=== PATIENT | female | born 2000 | race Caucasian/White ===

== ENCOUNTER 2019-09-16 16:00 | Observation (INO) ==
[2019-09-16] MEDS ORDERED: SODIUM CHLORIDE 0.9% 1000ML 1,000 ML IV ONE (16:17)
[2019-09-16] MEDS ORDERED: KETOROLAC 30 MG/ML VIAL IV STA (16:17)
[2019-09-16] MEDS ORDERED: ONDANSETRON INJ 2 MG/ML 2 ML VIAL IV STA ×2 (16:17→18:28)
[2019-09-16 17:06] LABS: Basophils # (auto) 0.01 K/uL (0-0.2); Basophils % (auto) 0.1 %; Eosinophils # (auto) 0.12 K/uL (0-0.5); Eosinophils % (auto) 1.1 %; Immature Granulocytes # (auto) 0.03 K/uL (0.00-0.02); Immature Granulocytes % (auto) 0.3 %; Lymphocytes # (auto) 0.72 K/uL (1.2-3.4); Lymphocytes % (auto) 6.7 %; Mean Corpuscular Hemoglobin 26.6 pg (25-34); Mean Corpuscular Hgb Conc 32.4 g/dL (32-36); Mean Corpuscular Volume 82.1 fL (80-100); Monocytes # (auto) 0.86 K/uL (0.11-0.59); Neutrophils # (auto) 9.06 K/uL (1.4-6.5); Neutrophils % (auto) 83.8 %; Platelet Count 284 K/uL (130-400); RDW Coefficient of Variation 15.7 % (11.5-14.5); RDW Standard Deviation 47.1 fL (36.4-46.3); Red Blood Count 4.14 M/uL (4.2-5.4)
[2019-09-16 17:23] LABS: Albumin Level 4.1 gm/dl (3.4-5.0); BUN Creatinine Ratio 13.8 (10-20); Creatinine Clr Calc Pharmacy 108.3 ml/min; Est GFR (African American) 144.9; Potassium 3.4 mmol/L (3.5-5.1)
[2019-09-16 17:25] LABS: Albumin Globulin Ratio 1.1 (0.9-2); Bilirubin,Total 0.4 mg/dl (0.2-1); Globulin 3.8 gm/dl (2.5-4.0); Total Protein 7.9 gm/dl (6.4-8.2)
[2019-09-16] MEDS ORDERED: IOVERSOL 100ml IV PRN (17:53)
--- NOTE | 2019-09-16 18:07 | CT Scan Report ---
ABDOMEN AND PELVIS CT WITH IV CONTRAST CT DOSE: 345.91 mGycm HISTORY: Right lower quadrant pain. TECHNIQUE: Multiaxial CT images of the abdomen and pelvis were performed following the use of intrave nous contrast. A dose lowering technique was utilized adhering to the principles of ALARA. COMPARISON STUDY: None. FINDINGS: The lung bases are clear. No pneumoperitoneum. No pneumatosis. No fractures within the visu alized osseous structures. The liver, spleen, adrenal glands, pancreas, gallbladder, and kidneys are unremarkable. No hydronephrosis. No retroperitoneal lymphadenopathy. A few prominent ileocolic lymph nodes which are likely reactive. The bladder, uterus, and bilateral ovaries are unremarkable. There i s trace pelvic free fluid. No evidence for a small bowel obstruction. The appendix is thick-walled an d dilated up to 12 mm. There is mild periappendiceal fat stranding. There is a 1 cm appendicolith. No perforation or abscess. Findings are consistent with acute appendicitis. IMPRESSION: Acute appendicitis. No perforation or abscess. The appendix contains a 1 cm appendicolith. ACT 112: Negative or not required by law. Electronically signed by: Nnamdi Manzo M.D. 09/16/2019 6:05 PM
[2019-09-16] MEDS ORDERED: cefOXitin 2,000 MG/60 ML BAG IV STA (18:28)
[2019-09-16] MEDS ORDERED: MoRPHine SULFATE 4 MG/ML 1 ML CARP\\VIAL IV STA (18:28)
[2019-09-16] MEDS: SODIUM CHLORIDE 0.9% 500 ML IV SCH ×2 (19:02→23:41)
[2019-09-16] MEDS: BUPIVACAINE/EPINEPHRINE 0.5% MPF 1:200,000 10 ML VIAL ONE ×2 (19:02→20:37)
--- NOTE | 2019-09-16 19:20 | History & Physical Report ---
Date of Service September 16, 2019 Assessment & Plan (1) Acute appendicitis: We discussed her options. I am recommending a laparoscopic possible open appendectomy. We discussed alternatives. We discussed the risks which include bleeding, infection, DVT, PE, [place], CVA, injury to another organ such as ureter or bowel etc. Following our discussion I answered all of her questions. We will proceed this evening with laparoscopic appendectomy. She is agreeable with the plan. Acute appendicitis type: unspecified acute appendicitis type Qualified Code(s): K35.80 - Unspecified acute appendicitis History of Present Illness Primary Care Provider: NO PCP 19-year-old female who began having abdominal pain late last night. She had no resolution into today and was seen at an urgent center who referred her to the emergency room. CT scan confirms acute appendicitis. The pain is currently in her right lower quadrant. She has 11,000 white count. Allergies Allergy/AdvReac Type Severity Reaction Status Date / Time No Known Allergies Allergy Unverified 09/16/19 17:10 Home Medications Home Medications Medication Instructions Recorded Confirmed Type ibuprofen 600 mg PO TID PRN 09/16/19 09/16/19 History medroxyprogesterone [Depo-Provera] 150 mg IM .[id number] 09/16/19 09/16/19 History Past Med/Surg History Medical History Ovarian cyst Surgical History No pertinent past surgical history Family History Other No pertinent family history in first degree relatives Social History Feels Safe at Home: Yes Smoking Status: Never smoker Review of Systems All systems reviewed & are unremarkable except as noted in HPI & below Physical Exam Constitutional: WD/WN, vitals as above no acute distress and not ill appearing Eyes: PERRL, conjunctivae normal, anicteric sclerae EOM intact bilaterally ENMT: external ear and nose normal, oropharynx normal Ears: no hearing impairment Neck: trachea midline, no thyromegaly Respiratory: normal respiratory effort; no respiratory distress and does not use accessory muscles Cardiovascular: Rate/Rhythm: regular rate and regular rhythm Gastrointestinal (Abdomen): Soft. Positive right lower quadrant tenderness to palpation. Positive guarding. Positive Rovsing sign Skin: no rashes, warm and dry Psychiatric: Orientation: alert, oriented x 3 and cooperative Results & Data Vital Signs (Past 12 Hours) Vital Signs Temp Pulse Pulse Resp BP BP Pulse Ox 09/16/19 18:04 89 20 114/73 99 09/16/19 16:58 99 09/16/19 16:05 37.3 C 121 H 20 121/97 98
[2019-09-16] MEDS ORDERED: MIDAZOLAM HCL 1 MG/ML 2ML VIAL ONE (19:28)
[2019-09-16] MEDS ORDERED: fentaNYL citrate 100 MCG/2 ML VIAL ONE ×2 (19:29→21:10)
--- NOTE | 2019-09-16 19:42 | Anesthesiology Consultation ---
Date of Service September 16, 2019 Assessment & Plan Chart Review Chart Review: Acceptable Risk for Surgery Consults Requested none History Surgery Operation Date: 09/16/19 19:30 Proposed Procedures p Laparoscopic Appendectomy - Dax Jay DO Height/Weight Height: 5 ft 3 in Weight: 58.7 kg Allergies Allergy/AdvReac Type Severity Reaction Status Date / Time No Known Allergies Allergy Unverified 09/16/19 17:10 Medications Home Medications Medication Instructions Recorded Confirmed Last Taken ibuprofen 600 mg PO TID PRN 09/16/19 09/16/19 Unknown medroxyprogesterone [Depo-Provera] 150 mg IM .[id number] 09/16/19 09/16/19 Unknown Active Medications Generic Name Dose Route Start Last Admin Trade Name Freq PRN Reason Stop Dose Admin Sodium Chloride 500 mls @ 125 mls/hr 09/16/19 18:30 09/16/19 19:02 Nss IV 10/16/19 18:29 Not Given .Q4H CJ Ioversol 94 ml 09/16/19 17:53 09/16/19 17:54 Optiray 320 100ml IV 09/20/19 17:52 94 ml ONCE PRN Administration Interaction Checking Past Medical History Medical History Ovarian cyst Past Family History Family History Other No pertinent family history in first degree relatives Past Surgical History Surgical History No pertinent past surgical history Social History Smoking Status: Never smoker Physical Exam Vital Signs Last Vital Signs Temp 37.3 C 09/16/19 16:05 Pulse 90 09/16/19 19:18 Resp 16 09/16/19 19:18 BP 122/77 09/16/19 19:18 Pulse Ox 99 09/16/19 19:18 Testing Laboratory Results 09/16/19 16:55 09/16/19 16:55
[2019-09-16] MEDS ORDERED: ONDANSETRON INJ 2 MG/ML 2 ML VIAL IV PRN (19:44)
[2019-09-16] MEDS ORDERED: DEXAMETHASONE SOD INJ 4 MG/ML VIAL IV PRN (19:44)
[2019-09-16] MEDS ORDERED: HYDROmorphone INJ 2 MG/ML SYR/VIAL IV PRN (19:44)
[2019-09-16] MEDS ORDERED: ATROPINE SULFATE 0.1 MG/ML 10ML SYR IV PRN (19:44)
[2019-09-16] MEDS ORDERED: ePHEDrine sulfate 50 MG/ML AMP IV PRN (19:44)
--- NOTE | 2019-09-16 19:48 | Emergency Department Note ---
Entered by Kriss Clarke acting as a scribe for Sorin Alanis MD History of Present Illness General Chief complaint: Abdominal Pain Stated complaint: STOMACH PAIN, NAUSEA Time Seen by Provider: 09/16/19 16:08 Source: patient History of Present Illness Provider complaint: Abdominal Pain Onset (ago): day(s) 1 Location: abdomen (Lower) and right Pain Consistency: + constant Maximum Pain Intensity: 8 Quality: + sharp Relieved By: + none Exacerbated By: + none Associated symptoms: + fever/chills, + nausea/vomiting (Positive nausea. Negative vomiting. ) and + other (Constipated) The patient is a 19 year old female w/ PMHx of ovarian cysts who presents to the ED w/ CC of constant sharp lower right sided abdominal pain beginning last night. The patient states that her pain is not relieved nor exacerbated by anything specific. The patient reports experiencing fever/chills and constipation. The patient also reports experiencing nausea but denies any vomiting. The patient notes that she is on control. Home Medications Home Medications Medication Instructions Recorded Confirmed Type ibuprofen 600 mg PO TID PRN 09/16/19 09/16/19 History medroxyprogesterone [Depo-Provera] 150 mg IM .[id number] 09/16/19 09/16/19 History Allergies Allergy/AdvReac Type Severity Reaction Status Date / Time No Known Allergies Allergy Unverified 09/16/19 17:10 Past Med/Surg History Medical History Ovarian cyst Surgical History No pertinent past surgical history Family History Other No pertinent family history in first degree relatives Social History Feels Safe at Home: Yes Smoking Status: Never smoker Review of Systems See HPI for pertinent positives & negatives. and A total of 10 systems reviewed and were otherwise negative Physical Exam Vital Signs Vital Signs - 24 hr 09/16/19 16:05 09/16/19 16:58 09/16/19 18:04 Temperature 37.3 C Temperature Source Oral Pulse Rate 121 H Pulse Rate [Finger] 89 Respiratory Rate 20 20 Respiratory Effort / Characteristics Non-Labored Spontaneous Non-Labored Spontaneous Respiratory Depth Normal Normal Respiratory Pattern Regular Regular Blood Pressure 121/97 Blood Pressure [Right Arm] 114/73 Blood Pressure Mean 105 Blood Pressure Mean [Right Arm] 86 Blood Pressure Position Sitting Pulse Oximetry 98 99 99 Oxygen Delivery Method Room Air Room Air Room Air Sepsis Recent Fever Within 48 Hours No Sepsis New/Unexplained Change in Mental Status No Sepsis Action Taken by Nursing No Action Required 09/16/19 19:10 09/16/19 19:18 Temperature Temperature Source Pulse Rate Pulse Rate [Finger] 90 Respiratory Rate 16 Respiratory Effort / Characteristics Respiratory Depth Respiratory Pattern Blood Pressure Blood Pressure [Right Arm] 122/77 Blood Pressure Mean Blood Pressure Mean [Right Arm] 92 Blood Pressure Position Pulse Oximetry 99 Oxygen Delivery Method Room Air Room Air Sepsis Recent Fever Within 48 Hours Sepsis New/Unexplained Change in Mental Status Sepsis Action Taken by Nursing GENERAL: Well nourished, NAD, non-toxic. EYE EXAM: Normal conjunctiva. PERRL, no anisocoria and EOM's grossly intact w/o pain. OROPHARYNX: Moist mucous membranes. Grossly normal dentition. NECK: Supple, no nuchal rigidity, no adenopathy, non-tender. No signs of meningismus. LUNGS: Clear to auscultation. Normal chest wall mechanics. HEART: NSR, tachycardic rate, no MRG. ABDOMEN: Abdomen soft, RLQ pain, positive obturators and psoas, normo-active bowel sounds, no masses, no rebound or guarding. BACK: No CVA TTP. SKIN: No rashes and no bruising. UPPER EXTREMITIES: Upper extremities are grossly normal. LOWER EXTREMITIES: No pitting edema. No calf pain. NEURO EXAM: A&O x3, cranial nerves II-XII grossly intact, normal speech, moves all 4 extremities on command w/o issue. Course Course 1612: Past medical records reviewed. The patient was evaluated in room A03. A complete history and physical exam was performed. 1614: Continuous Cardiac Monitoring: An order was placed for continuous cardiac monitoring. The monitor shows a rate of 88 with normal sinus rhythm. 1722: I talked to the patient and her mother and the patient states that her pain has improved. 1828: I reevaluated and discussed test results with the patient. General surgery has been paged. 1834: I spoke with Dr. Jay- General Surgery and he will see the patient. 1922: Dr. Jay- General Surgery saw the patient and the patient will be taken to the operating room. Administered Medications Sodium Chloride (Nss) 500 mls @ 125 mls/hr IV .Q4H CJ Stop: 10/16/19 18:29 Last Admin: 09/16/19 19:02 Dose: Not Given Documented by: [id number] Ioversol (Optiray 320 100ml) 94 ml IV ONCE PRN PRN Reason: Interaction Checking Stop: 09/20/19 17:52 Last Admin: 09/16/19 17:54 Dose: 94 ml Documented by: [id number] Discontinued Medications Bupivacaine HCl/Epinephrine Bitart (Sensorcaine/Epinephrine 0.5% Mpf 1:200,000) Confirm Administered Dose 20 ml .ROUTE .STK-MED ONE Stop: 09/16/19 18:53 Last Admin: 09/16/19 19:02 Dose: Not Given Documented by: [id number] Sodium Chloride (Nss 1000ml) 1,000 mls @ 999 mls/hr IV .Q1H1M ONE Stop: 09/16/19 17:17 Last Infusion: 09/16/19 18:12 Dose: 0 mls/hr Documented by: [id number] Admin: 09/16/19 16:56 Dose: 999 mls/hr Documented by: [id number] Cefoxitin Sodium (Mefoxin) 2,000 mg in 60 mls @ 100 mls/hr IV NOW STA Stop: 09/16/19 19:03 Last Admin: 09/16/19 18:54 Dose: 100 mls/hr Documented by: [id number] Ketorolac Tromethamine (Toradol) 30 mg IV NOW STA Stop: 09/16/19 16:18 Last Admin: 09/16/19 16:58 Dose: 30 mg Documented by: [id number] Morphine Sulfate (Morphine Sulfate) 4 mg IV NOW STA Stop: 09/16/19 18:29 Last Admin: 09/16/19 18:55 Dose: 4 mg Documented by: [id number] Ondansetron HCl (Zofran) 4 mg IV NOW STA Stop: 09/16/19 16:18 Last Admin: 09/16/19 16:58 Dose: 4 mg Documented by: [id number] Ondansetron HCl (Zofran) 4 mg IV NOW STA Stop: 09/16/19 18:29 Last Admin: 09/16/19 18:55 Dose: 4 mg Documented by: [id number] Medical Decision Making Differential Diagnosis Differential diagnosis: Etiologies such as biliary colic, cholecystitis, hepatitis, perihepatitis, pancreatitis, cardiac disease, pancreatitis, gastritis, peptic ulcer disease, appendicitis, ovarian cyst, ovarian torsion, ectopic , pelvic inflammatory disease, cystitis, diverticulitis, mesenteric ischemia, inflammatory bowel disease, ileus, bowel obstruction, aortic pathology, shingles, as well as others were considered. Medical Records The patient has never been here before. Home Medications Current Medication List: was personally reviewed by me Laboratory Data Attestation: I reviewed the patient's lab results. Result diagrams: 09/16/19 16:55 09/16/19 16:55 Lab Results 09/16/19 09/16/19 Range/Units 16:55 16:55 WBC 10.80 (4.8-10.8) K/uL RBC 4.14 L (4.2-5.4) M/uL Hgb 11.0 L (12.0-16.0) g/dL Hct 34.0 L (37-47) % MCV 82.1 (80-100) fL MCH 26.6 (25-34) pg MCHC 32.4 (32-36) g/dL RDW Std Deviation 47.1 H (36.4-46.3) fL RDW Coeff of [place] 15.7 H (11.5-14.5) % Plt Count 284 (130-400) K/uL MPV 10.0 (7.4-10.4) fL Immature Gran % (Auto) 0.3 % Neut % (Auto) 83.8 % Lymph % (Auto) 6.7 % [place] % (Auto) 8.0 % Eos % (Auto) 1.1 % Baso % (Auto) 0.1 % Immature Gran # (Auto) 0.03 H (0.00-0.02) K/uL Neut # (Auto) 9.06 H (1.4-6.5) K/uL Lymph # (Auto) 0.72 L (1.2-3.4) K/uL [place] # (Auto) 0.86 H (0.11-0.59) K/uL Eos # (Auto) 0.12 (0-0.5) K/uL Baso # (Auto) 0.01 (0-0.2) K/uL Sodium 138 (136-145) mmol/L Potassium 3.4 L (3.5-5.1) mmol/L Chloride 109 H (98-107) mmol/L Carbon Dioxide 23 (21-32) mmol/L Anion Gap 6.0 (3-11) BUN 9 (7-18) mg/dl Creatinine 0.68 (0.6-1.2) mg/dl Est Cr Clr Drug Dosing 108.3 ml/min Est GFR ( Amer) 144.9 Est GFR (Non-Af Amer) 125.0 BUN/Creatinine Ratio 13.8 (10-20) Glucose 113 H (70-99) mg/dl Calcium 9.0 (8.5-10.1) mg/dl Total Bilirubin 0.4 (0.2-1) mg/dl AST 11 L (15-37) U/L ALT 15 (12-78) U/L Alkaline Phosphatase 83 (45-117) U/L Total Protein 7.9 (6.4-8.2) gm/dl Albumin 4.1 (3.4-5.0) gm/dl Globulin 3.8 (2.5-4.0) gm/dl Albumin/Globulin Ratio 1.1 (0.9-2) Lipase 104 (73-393) U/L Imaging Data Radiologist's Impression: Radiology results as stated below per my review and the radiologist's interpretation: ABDOMEN AND PELVIS CT WITH IV CONTRAST CT DOSE: 345.91 mGycm HISTORY: Right lower quadrant pain. TECHNIQUE: Multiaxial CT images of the abdomen and pelvis were performed following the use of intravenous contrast. A dose lowering technique was utilized adhering to the principles of ALARA. COMPARISON STUDY: None. FINDINGS: The lung bases are clear. No pneumoperitoneum. No pneumatosis. No fractures within the visualized osseous structures. The liver, spleen, adrenal glands, pancreas, gallbladder, and kidneys are unremarkable. No hydronephrosis. No retroperitoneal lymphadenopathy. A few prominent ileocolic lymph nodes which are likely reactive. The bladder, uterus, and bilateral ovaries are unremarkable. There is trace pelvic free fluid. No evidence for a small bowel obstruction. The appendix is thick-walled and dilated up to 12 mm. There is mild periappendiceal fat stranding. There is a 1 cm appendicolith. No perforation or abscess. Findings are consistent with acute appendicitis. IMPRESSION: Acute appendicitis. No perforation or abscess. The appendix contains a 1 cm appendicolith. ACT 112: Negative or not required by law. Electronically signed by: Nnamdi Manzo M.D. 09/16/2019 6:05 PM ECG Data Indication: + abdominal pain Rate (beats per minute): 88 Rhythm: + normal sinus ECG Intervals/blocks: + Incomplete right bundle branch block ECG ST segments: + T-wave inversions (Lead 3 and aVF ) ECG Findings: + Other (Normal intervals) Comparison ECG Date: no prior available Blood Pressure Blood Pressure Findings: Elevated blood pressure Blood Pressure Disposition: further management by hospitalist MDM Narrative The patient is a 19 year old female w/ PMHx of ovarian cysts who presents to the ED w/ CC of constant sharp lower right sided abdominal pain beginning last night. Patient was seen and evaluated the bedside. The patient was sent here from [facility] due to concern for right lower quadrant pain. Patient states that she started having his pain beginning last night. Patient has had nausea but without vomiting. No fevers. Patient does have prior history of ovarian cyst. Patient states that this does not feel necessarily similar. Patient did a bladder completed which is fairly unremarkable with only mild anemia and hypokalemia noted. CT of the abdomen pelvis does show an acute appendicitis. Patient was started on cefoxitin. IV fluids were also started patient was made n.p.o. I did speak with the general surgeon who kindly evaluated the patient. The patient was subsequently taken to the OR and admitted to the hospital. Impression & Plan Acute appendicitis, Abdominal pain, RLQ Discharge Plan Visit Data Chief Complaint: Abdominal Pain Stated Complaint: STOMACH PAIN, NAUSEA ED Provider: Sorin Alanis Discharge Problem: Acute appendicitis, Abdominal pain, RLQ Patient Disposition: Still a Patient Discharge Instructions Interventions: ED Discharge Assessment Last Done: 09/16/19 19:10 Forms Stand Alone Forms: [employer] Labs Prescriptions Prescriptions: No Action medroxyprogesterone [Depo-Provera] 150 mg/mL Syringe 150 mg IM .[id number] RF: 0 ibuprofen 600 mg Tablet 600 mg PO TID PRN (Reason: Pain) RF: 0 Referrals Referrals: PCP,NO [Primary Care Provider] - Discharge Problem: Acute appendicitis Qualifiers: Acute appendicitis type: unspecified acute appendicitis type Qualified Code(s): K35.80 - Unspecified acute appendicitis The scribe's documentation has been prepared under my direction and personally reviewed by me in its entirety. I confirm that the note above accurately reflects all work, treatment, procedures, and medical decision making performed by me.
[2019-09-16] MEDS ORDERED: PROPOFOL IV EMULSION 10 MG/ML 20 ML VIAL IV ONE (20:25)
[2019-09-16] MEDS ORDERED: ROCURONIUM BROMIDE 10 MG/ML 5 ML VIAL ONE (20:26)
[2019-09-16] MEDS ORDERED: DEXAMETHASONE SOD INJ 4 MG/ML VIAL ONE (20:26)
[2019-09-16] MEDS ORDERED: GLYCOPYRROLATE 0.2 MG/ML VIAL ONE (20:26)
[2019-09-16] MEDS ORDERED: NEOSTIGMINE METHYLSULFATE 5 MG/5 ML SYR ONE (20:26)
[2019-09-16] MEDS ORDERED: ONDANSETRON INJ 2 MG/ML 2 ML VIAL ONE (20:26)
--- NOTE | 2019-09-16 20:49 | Operative Report ---
PG Post Operative Report Pre & Post Diagnosis Operation Date: 09/16/19 19:30 Pre-Op Diagnosis: Acute appendicitis Post-Op Diagnosis: Acute appendicitis I identified the patient and participated in the time-out.: Yes Procedure Operation Date: 09/16/19 19:30 Actual Procedures p Laparoscopic Appendectomy - Dax Jay DO Surgeon Dax Jay DO Neck Skewer n/a Estimated Blood Loss 5 Findings Consistent with Post-Op Diagnosis Specimens appendix Description of Procedure After informed consent was obtained the patient was taken to the operating room and placed in supine position. After successful intubation a Alvarenga catheter was placed and the left arm was tucked. A Alvarenga catheter was inserted sterilely. I began by making a periumbilical incision with an 11 blade scalpel and carried this down through the soft tissue using electrocautery. The anterior rectus fascia was opened using electrocautery and 2 #0 Vicryl stay sutures were placed. The peritoneum was elevated using hemostats and incised under direct vision using a Metzenbaum scissor. A finger sweep was performed. A 12 mm Cardenas trocar was placed and the abdomen was insufflated to 18 mmHg. A laparoscope was inserted and the abdomen was examined in 360. A suprapubic 5 mm port and a left lower quadrant 12 mm port were placed under direct vision. The patient was air planed to the left as well as placed in a slight Trendelenburg position. We began by looking in the right lower quadrant. We were able to readily identify the appendix and it was grossly inflamed. It had not perforated. There is a small amount of purulent fluid in the right lower quadrant and the pelvis. We immediately irrigated and suctioned this out. I was able to use primarily blunt dissection to pull the appendix away from the right lower quadrant sidewall. I was then able to use a ADAM brown cartridge stapler to transect first the mesentery of the appendix and then the appendix itself at its base with the cecum. Both were performed with 60 mm brown cartridges. It was then placed into an Endo Catch bag and removed from the camera port site. We thoroughly irrigated the right lower quadrant as well as the pelvis. There was adequate hemostasis. I ran the small bowel backwards from the terminal ileum for about 6 feet all of which was normal. All the peritoneal surfaces were normal. Small/ large bowel, liver, stomach etc. all appeared grossly normal. We did a final irrigation and then removed all the trochars and desufflated the abdomen. The fascia of the camera port as well as the left lower quadrant were closed using 0 Vicryl in [id number] fashion. Wounds were all irrigated and closed using 4-0 Monocryl. Marcaine was injected around them for postoperative analgesia and skin glue used as a dressing. The patient was awakened extubated and transferred to recovery in stable condition. I attest to the content of the Intraoperative Record and any orders documented therein. Any exceptions are noted below.
[2019-09-16] MEDS: fentaNYL citrate 100 MCG/2 ML VIAL IV PRN ×2 (21:10→21:15)
--- NOTE | 2019-09-16 21:38 | Anesthesiology Progress Note ---
Date of Service September 16, 2019 Anesthesia Post Procedure Vital Signs Vital Signs: Temp Pulse Pulse Pulse Resp BP BP 09/16/19 21:30 36.8 C 72 15 105/51 L 09/16/19 21:20 68 16 103/72 09/16/19 21:10 66 18 116/75 09/16/19 21:00 69 20 118/85 09/16/19 20:50 36.5 C 89 16 118/79 09/16/19 19:18 90 16 122/77 09/16/19 18:04 89 20 114/73 09/16/19 16:58 09/16/19 16:05 37.3 C 121 H 20 121/97 Pulse Ox 09/16/19 21:30 98 09/16/19 21:20 99 09/16/19 21:10 100 09/16/19 21:00 100 09/16/19 20:50 100 09/16/19 19:18 99 09/16/19 18:04 99 09/16/19 16:58 99 09/16/19 16:05 98 Pain Intensity Abdomen: Pain Intensity: 4 Transfer of Care Handoff Completed per policy Notes Mental Status: alert / awake / arousable and participated in evaluation Patient Amnestic to Procedure: Yes Nausea / Vomiting: adequately controlled Pain: adequately controlled Airway Patency, RR, SpO2: stable & adequate BP & HR: stable & adequate Hydration State: stable & adequate Anesthetic Complications: no major complications apparent
[2019-09-16] MEDS ORDERED: MoRPHine SULFATE 4 MG/ML 1 ML CARP\\VIAL IV PRN ×2 (22:01)
[2019-09-16] MEDS ORDERED: OXYCODONE HCL IR 5 MG TAB (IMMEDIATE RELEASE) PO PRN (22:01)
[2019-09-16] MEDS ORDERED: INFLUENZA VIRUS QUAD VACCINE 0.5 ML SYR IM ONE (22:11)
[2019-09-16] MEDS ORDERED: INFLUENZA ADMINISTRATION CHARGE ONE (22:11)
[2019-09-16] MEDS: MoRPHine SULFATE 2 MG/ML CARP IV PRN ×2 (22:14→23:00)
[2019-09-16] MEDS: SODIUM CHLORIDE 0.9% 1000ML 1,000 ML IV SCH (22:15)
[2019-09-16] MEDS: ONDANSETRON INJ 2 MG/ML 2 ML VIAL IV PRN (23:02)
[2019-09-16] MEDS: ACETAMINOPHEN 1,000 MG/100 ML VIAL IV PRN (23:47)
[2019-09-17] MEDS: OXYCODONE HCL IR 5 MG TAB (IMMEDIATE RELEASE) PO PRN ×4 (00:52→15:59)
[2019-09-17] MEDS ORDERED: DiphenhydrAMINE HCL 50 MG/ML VIAL IV PRN (01:26)
[2019-09-17] MEDS ORDERED: DiphenhydrAMINE HCL 50 MG/ML VIAL ONE (01:29)
[2019-09-17] MEDS ORDERED: CEFAZOLIN 1000MG 1,000 MG/7.5 ML SYR IV SCH (02:00)
[2019-09-17] MEDS: SODIUM CHLORIDE 0.9% 1000ML 1,000 ML IV SCH ×2 (05:06→15:39)
--- NOTE | 2019-09-17 07:28 | Anesthesiology Progress Note ---
Date of Service September 17, 2019 Anesthesia Post Procedure Vital Signs Vital Signs: Temp Pulse Pulse Pulse Resp BP BP 09/17/19 03:10 37.2 C 78 16 103/65 09/17/19 00:45 36.9 C 79 16 107/65 09/16/19 23:48 36.7 C 80 16 110/69 09/16/19 22:48 36.7 C 97 H 16 111/69 09/16/19 22:15 36.9 C 66 16 110/68 09/16/19 21:45 37.2 C 75 15 114/72 09/16/19 21:30 36.8 C 72 15 105/51 L 09/16/19 21:20 68 16 103/72 09/16/19 21:10 66 18 116/75 09/16/19 21:00 69 20 118/85 09/16/19 20:50 36.5 C 89 16 118/79 09/16/19 19:18 90 16 122/77 09/16/19 18:04 89 20 114/73 09/16/19 16:58 09/16/19 16:05 37.3 C 121 H 20 121/97 Pulse Ox 09/17/19 03:10 97 09/17/19 00:45 99 09/16/19 23:48 98 09/16/19 22:48 100 09/16/19 22:15 100 09/16/19 21:45 99 09/16/19 21:30 98 09/16/19 21:20 99 09/16/19 21:10 100 09/16/19 21:00 100 09/16/19 20:50 100 09/16/19 19:18 99 09/16/19 18:04 99 09/16/19 16:58 99 09/16/19 16:05 98 Pain Intensity Abdomen: Pain Intensity: 7 Notes Mental Status: alert / awake / arousable and participated in evaluation Patient Amnestic to Procedure: Yes Nausea / Vomiting: adequately controlled Pain: adequately controlled Airway Patency, RR, SpO2: stable & adequate BP & HR: stable & adequate Hydration State: stable & adequate Anesthetic Complications: Pt Satisfied with anesthetic care
--- NOTE | 2019-09-17 09:47 | Surgery Progress Note ---
Date of Service September 17, 2019 Assessment & Plan (1) Acute appendicitis: POD 1 lap appy advance diet seen with Dr. Pierre ORTEGA for d/c when tolerates diet as above. doing well. ok for d/c. instructions given. Subjective feeling well, apparent allergy to mefoxin improved after benadryl Physical Exam Gastrointestinal (Abdomen): Inspection/Auscultation: abdomen not distended Percussion/Palpation: abdomen soft Results & Data Vital Signs (Past 12 Hours) Vital Signs Temp Pulse Resp BP Pulse Ox 09/17/19 07:05 36.7 C 85 17 98/60 L 98 09/17/19 03:10 37.2 C 78 16 103/65 97 09/17/19 00:45 36.9 C 79 16 107/65 99 09/16/19 23:48 36.7 C 80 16 110/69 98 09/16/19 22:48 36.7 C 97 H 16 111/69 100 09/16/19 22:15 36.9 C 66 16 110/68 100 PG Care Time/CCT Total # of Minutes Spent Total Time Spent with Patient: Total time spent is greater than 50% in coordination of care (as documented) at patient's floor/unit and/or counseling patient: Coding Level of Care Code None Diagnoses Acute appendicitis K35.80 Acute appendicitis type: unspecified acute appendicitis type (1) Acute appendicitis Acute appendicitis type: unspecified acute appendicitis type Qualified Code(s): K35.80 - Unspecified acute appendicitis
--- NOTE | 2019-09-17 13:07 | Electrocardiogram Report ---
Test Reason : Blood Pressure : / mmHG Vent. Rate : 088 BPM Atrial Rate : 088 BPM P-R Int : 124 ms QRS Dur : 090 ms QT Int : 358 ms P-R-T Axes : 046 070 -06 degrees QTc Int : 433 ms Normal sinus rhythm Nonspecific ST abnormality No previous ECGs available Confirmed by Cj Benitez ([id number]) on 09/17/2019 1:06:51 PM Referred By: REFERRED SELF Confirmed By:Niraj Benitez
[2019-09-17] MEDS: ACETAMINOPHEN 1,000 MG/100 ML VIAL IV PRN (13:15)
[2019-09-17] MEDS: ONDANSETRON INJ 2 MG/ML 2 ML VIAL IV PRN (16:57)
--- NOTE | 2019-09-20 11:25 | Discharge Summary ---
Date of Service September 20, 2019 Admission HPI Per Admitting Provider 19-year-old female who began having abdominal pain late last night. She had no resolution into today and was seen at an urgent center who referred her to the emergency room. CT scan confirms acute appendicitis. The pain is currently in her right lower quadrant. She has 11,000 white count. Principal Diagnosis 1. Acute appendicitis 2. Allergic reaction to Ancef Discharge Exam Gastrointestinal (Abdomen) Inspection/Auscultation: + abdominal surgical incision (clean dressing) Percussion/Palpation: abdomen soft Discharge Data Allergies Allergy/AdvReac Type Severity Reaction Status Date / Time cefazolin [From Ancef] Allergy Intermediate Verified 09/20/19 11:29 Consultations 09/16/19 18:36 ED Decision to Admit Stat Procedures Performed Operation Date: 09/16/19 19:30 Actual Procedures p Laparoscopic Appendectomy - Dax Jay DO Ordered Studies 09/16/19 16:17 CT abd pelvis IV con only Stat Hospital Course (1) Acute appendicitis: 19 y/o female presented to the ER with nausea and RLQ abdominal pain. White count was 10,[address] was consistent with acute appendicitis and an appendicolith. She was taken to the operating room that eveing for laparoscopic appendectomy and transferred to the surgical floor for overnight observation. She had been given Mefoxin preop and was given a postop dose of Ancef to which she had a reaction of facial and lip swelling. This resolved with a dose of IV Benadryl. In the morning she was able to advance diet and tolerate oral a nalgesics. She was stable for discharge home. Total Time Total Time Spent Total Time Spent (In Minutes): 15 Discharge Plan Discharge Items Patient Disposition: Home - Self-Care Reason For Visit: APPENDICITIS Discharge Diagnosis: appendectomy Activity: As commented below Lifting: No more than 10 pounds Bathing: No limitations Driving/Machine Use: Resume 3 days after discharge Non-emergency contact: Surgeon Call non-emergency contact if: you have any medication questions, your pain is not controlled, you have a fever, your temperature is above 101.5 and your wound has increased redness Follow-up/Referrals: Dax Jay DO [Surgeon] - (Call to make an appt in 10-14 days) PCP,NO [Primary Care Provider] - Diet: Regular Addtl Attending Provider Instructions: Pending Studies at Discharge: No Stand-Alone Forms: My [facility], Opioid Pain Management, Work/School Release (Inpt), Smoking Cessation Medications and DC Order Prescriptions: New hydrocodone-acetaminophen [Gray] 5-325 mg tablet 1 - 2 tab PO Q4H PRN (Reason: pain, initial therapy, max 8 tabs daily) Qty: 15 RF: 0 Continued medroxyprogesterone [Depo-Provera] 150 mg/mL Syringe 150 mg IM .[id number] RF: 0 ibuprofen 600 mg Tablet 600 mg PO TID PRN (Reason: Pain) RF: 0 Discharge Orders: Discharge Order (Routine); Ordered 09/17/19 Ordered By: Guevara Crespo/Other Patient Handouts: Surgery Prevent DVT After, Appendectomy, Appendectomy Laparoscopic Dc Admission Data Admit Date/Time: 09/16/19 22:01 Attending Provider: Dax Jay Admit Provider: Dax Jay Primary Care Provider: PCP,NO Other Providers: Dax Jay Other Interventions: Discharge Summary Assessment (RN) Last Done: 09/17/19 11:06 DC Date/Time DO NOT enter until pt leaves facility: 09/17/19 17:22 Coding Level of Care Code D/C Day Management <30 mins Diagnoses Acute appendicitis K35.80
== END 2019-09-17 17:22 | disposition home or self-care (01) ==
LOC: ED 16:00 → OR 19:10 → 3N 19:10